=== PATIENT | male | born 1975 | race African-American/Black ===

== ENCOUNTER → 2016-08-30 | Outpatient (CLI) | payer BC ==
--- NOTE | ~2016-08-30 | US6 ---
[facility] A Service of [facility] RADIOLOGY TEXT RESULTS PATIENT: WALLY CANO LOCATION: [facility] : 79 UNIT #: [id number] AGE: [address]: LEO BRIGGS MD SEX: M ORDER DR: [id number] [address] [address] [id number] O MR#: [id number] Acc #: [id number] NAME: WALLY CANO. : 1975 SEX: M STUDY DATE/TIME: 08/30/2016 10:34 UNIT: [facility] ROOM: STUDY DESCRIPTION: US Abdominal Limited Attending Physician: Natty Briggs M.D. Referring Physician: Natty Briggs M.D. Ordering Physician: Natty Briggs M.D. Primary Care Physician: Natty Briggs M.D. MEDICAL IMAGING REPORT This report is preliminary unless electronic signature is present. EXAM Right upper quadrant ultrasound 08/30/2016. HISTORY Abnormally elevated liver enzymes for 2 weeks. FINDINGS The liver demonstrates an increase in echotexture with attenuation of the ultrasound beam characteristic of fatty infiltration. No cystic or solid mass lesions were seen in the liver. The intrahepatic bile ducts are not dilated. The gallbladder is normal with no evidence of cholelithiasis, wall thickening or pericholecystic fluid. The common duct and pancreas are obscured by bowel gas. The right kidney is normal. IMPRESSION 1. Fatty infiltration of the liver. 2. Normal gallbladder. 3. Exam is limited as the pancreas and common bile duct were obscured by bowel gas. Dictated by... Mp Altamirano M.D. THIS IS AN ELECTRONICALLY VERIFIED REPORT Mp Altamirano M.D. at 08/31/2016 8:04 AM Alexandr TD: 08/30/2016 16:55 JOB #: [id number] [facility] A Service of [facility] RADIOLOGY TEXT RESULTS PATIENT: WALLY CANO LOCATION: [facility] #: [id number] : [birth year] UNIT #: [id number] AGE: [address]: LEO BRIGGS MD SEX: M ORDER DR: MEDICAL IMAGING REPORT Page 1 of 1
== END | disposition home or self-care (01) ==
LOC: SGUS 09:42
DX: R74.8 Abnormal levels of other serum enzymes (principal); K76.0 Fatty (change of) liver, not elsewhere classified
CPT/HCPCS: 76705